=== PATIENT | female | born 2005 | race Caucasian/White ===

== ENCOUNTER 2023-07-02 14:04 | Outpatient (CLI) | payer BC, SELFPAY | END 2023-07-02 14:05 | disposition home or self-care (01) | LOC: LKVREF 14:05 | PROVIDERS: PCP Physician Assistant Medical; Visit Provider Physician Assistant Medical | DX: Z00.00 Encounter for general adult medical examination without abnormal findings (principal); F41.1 Generalized anxiety disorder; Z13.0 Encounter for screening for diseases of the blood and blood-forming organs and certain disorders involving the immune mechanism | CPT/HCPCS: 84443 ==

== ENCOUNTER 2024-07-28 13:46 | Outpatient (CLI) | payer BC, SELFPAY | END 2024-07-28 13:47 | disposition home or self-care (01) | LOC: LKVREF 13:47 | PROVIDERS: PCP Physician Assistant Medical; Visit Provider Physician Assistant Medical | DX: Z11.1 Encounter for screening for respiratory tuberculosis (principal) | CPT/HCPCS: 86480 ==

== ENCOUNTER 2024-08-02 08:01 | Outpatient (CLI) | payer BC, SELFPAY ==
--- NOTE | 2024-08-02 08:15 | CRLHL7_ITS ---
For Patients: As a result of the Cures Act, medical imaging exams and procedure reports are released immediately into your electronic medical record. You may view this report before your referring provider. If you have questions, please contact your health care provider. LEFT BREAST ULTRASOUND CLINICAL HISTORY: LEFT breast lump. COMPARISON: None. TECHNIQUE: Real-time ultrasound imaging of LEFT breast with imaging documentation. FINDINGS: Targeted LEFT breast ultrasound performed at 1 o`clock 3 cm from the nipple. In this location, there is a solid circumscribed heterogeneously hypoechoic mass which measures 5.6 x 2.0 x 5.3 cm. Mild distal acoustic enhancement noted. Minimal internal vascularity. 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 RECOMMENDATIONS: Ultrasound-guided core needle biopsy. Results and recommendations were discussed with the patient at the time of the exam. A lay language report of this examination will be provided to the patient. BI-RADS Category 4: Suspicious Dictated by Khanh Downs MD @ 08/02/2024 8:54:07 AM jj/Dictated by: Khanh Downs MD @ 08/02/2024 8:54:00 AM (Electronically Signed)
== END 2024-08-02 08:02 | disposition home or self-care (01) ==
PROVIDERS: PCP Physician Assistant Medical; Visit Provider Physician Assistant Medical
DX: N63.20 Unspecified lump in the left breast, unspecified quadrant (principal)
CPT/HCPCS: 76642

== ENCOUNTER 2024-08-19 07:05 | Day surgery (SDC) | payer BC, SELFPAY ==
[2024-08-19 07:30] VITALS: BMI 21.0
[2024-08-19 07:33] LABS: Ur HCG Qualitative* Negative (Negative)
[2024-08-19 07:37] VITALS: BP 120/67; PULSE 72; RESP 16; TEMP 37.1; O2SAT 99
[2024-08-19] MEDS: SODIUM CHLORIDE 0.9 % (FLUSH) 10 ML SYRINGE IVF (07:50)
[2024-08-19] MEDS: LACTATED RINGERS 500 ML 500 ML 125 ML IV (08:30)
[2024-08-19] MEDS: ACETAMINOPHEN 325 MG TABLET 650 MG PO (08:52)
--- NOTE | 2024-08-19 08:52 | W.PM.H&PU ---
History & Physical Update History & Physical Update H&P Reviewed and patient assessed: No changes noted
--- NOTE | 2024-08-19 08:52 | PM.GSPRC ---
Operative Note Date of procedure: 08/19/24 Pre-op diagnosis: Left breast mass Post-op diagnosis: same Type of Procedure: Excision left breast mass Indications: The patient is a 19-year-old female was found have a left breast mass on clinical exam. Ultrasound was obtained which showed a 5.7 cm nodule representing fibroadenoma versus phyllodes tumor. Given its size, excision was recommended. The patient agreed to proceed. Procedure Description: After discussing the risks and benefits of the procedure, the patient signed informed consent.? The operative site was marked and the patient was brought to the operating room and placed on the operating table in supine position.? Care was taken to pad the patient's pressure points.?? The patient was then given sedation by anesthesia.?? The operative site was then prepped and draped in the usual sterile fashion.? A time-out was then performed. Local anesthetic was injected into the skin subcutaneous tissue in the upper outer quadrant of the left breast overlying the mass. A curvilinear incision was created at the nipple areolar complex border and dissection was taken down into the subcutaneous tissue. The mass was very mobile within the breast tissue and this was mobilized laterally to minimize injury to the central breast tissue as I dissected down to it using cautery. Once the mass was encountered, I carefully dissected this from the surrounding tissue avoiding entering the capsule, however leaving normal breast tissue behind. This was then marked with a single stitch superior and a double stitch laterally and sent to pathology in formalin. The wound was examined and hemostasis appeared excellent. Interrupted 2 0 Vicryl sutures were used to reapproximate the breast tissue within the cavity. 3-0 Vicryl dermal and 4-0 Monocryl running subcuticular suture were then used to close the skin. Sterile dressings were applied. A compression wrap was then applied. ? The patient was then woken and transported to the recovery area in stable condition. ? The patient tolerated the procedure well. Findings: 5.7 cm well-circumscribed lobulated left breast mass Anesthesia: MAC Surgeon: Smita Da Silva MD Estimated blood loss (mL): 5 Additional Specimen Information: left breast mass, single stitch superior, double lateral Condition: stable Disposition: same day
[2024-08-19] MEDS: LIDOCAINE 1% MDV 20 ML INJECTION (09:05)
[2024-08-19] MEDS: BUPIVACAINE 0.25% 30 ML INJECTION (09:05)
[2024-08-19] MEDS: LACTATED RINGERS 1000 ML 1,000 ML 100 ML IV (09:08)
[2024-08-19 09:44] VITALS: BP 96/52; PULSE 60; RESP 16; TEMP 36.4; O2SAT 98
[2024-08-19 09:45] VITALS: BP 98/60; PULSE 64; RESP 16; O2SAT 98
[2024-08-19 10:00] VITALS: BP 83/47; PULSE 67; RESP 16; O2SAT 98
[2024-08-19 10:15] VITALS: BP 90/55; PULSE 71; RESP 16; O2SAT 98
[2024-08-19 10:30] VITALS: BP 103/77; PULSE 75; RESP 16; O2SAT 98
--- NOTE | 2024-08-19 11:17 | P.ANES_ITS ---
Anesthesia Charges Start Date/Time Anesthesia Start Date: 08/19/24 Anesthesia Start Time: 08:45 Stop Date/Time Anesthesia Stop Date: 08/19/24 Anesthesia Stop Time: 09:44 Coding CPT Codes CPT Codes: ANESTH SKIN EXT/PER/ATRUNK - 38045 ([id number]) P1 - NORMAL HEALTHY PATIENT, QK - BLUEPRINT CUTTER 2-4 CNCRNT ANES PROC, QX - DRESSMAKER GARMENT FITTER SVKiara W/ MED DIRECTION
--- NOTE | 2024-08-19 11:17 | W.ANESCHARGE ---
Anesthesia Charges Start Date/Time Anesthesia Start Date: 08/19/24 Anesthesia Start Time: 08:45 Stop Date/Time Anesthesia Stop Date: 08/19/24 Anesthesia Stop Time: 09:44 Coding CPT Codes CPT Codes: ANESTH SKIN EXT/PER/ATRUNK - 25867 ([id number]) P1 - NORMAL HEALTHY PATIENT, QK - DIAL POLISHER 2-4 CNCRNT ANES PROC, QX - CLERK ENTRY LEVEL SVKiara W/ MED DIRECTION
== END 2024-08-19 11:05 | disposition home or self-care (01) ==
PROVIDERS: PCP Physician Assistant Medical; Visit Provider Surgery
PROC: (CPT 19120; principal; 2024-08-19 08:30)
DX: D24.2 Benign neoplasm of left breast (principal); N63.21 Unspecified lump in the left breast, upper outer quadrant
CPT/HCPCS: 19120; 00400; 81025; J2003; A9270; J0665; J0690; J1100; J2250; J2405; J2704; J3010; J7120

== ENCOUNTER 2025-02-08 21:07 | Emergency (ER) | payer BC, SELFPAY ==
[2025-02-08 21:11] VITALS: BP 118/72; PULSE 82; RESP 16; TEMP 37.5; O2SAT 97; BMI 20.9
--- NOTE | 2025-02-08 21:54 | ED.GENADULT ---
HPI - General Adult General Date Seen: 02/08/25 Chief complaint: Difficulty Swallowing Stated complaint: Took doxycycline since then cant swallow andchestp Time Seen by Provider: 02/08/25 21:24 History of Present Illness HPI narrative: 20-year-old female who is generally healthy, presenting to the ER today with her family with concern for odynophagia and chest pain. She has been on doxycycline for the past 2 weeks (for her skin). About 6 days ago she took a doxycycline 1 lay down. Ever since then she was and having some burning she stabbing discomfort with swallowing. This discomfort is mostly in the center of the chest. It has been getting worse. She stop the doxycycline a few days ago and has been using Pepcid, Tums, and started omeprazole. It has been getting worse for the past couple of days and now it hurts fairly continuously. She is not have any trouble breathing. No fever. No cough. No pain in her throat. No abdominal pain. She has hardly been able to drink because it hurts too much to swallow. She is starting to feel little bit weak like she is dehydrated. Related Data Previous Rx's ?Medication ?Instructions ?Recorded lorazepam 0.5 mg tablet 0.5 mg PO TID PRN anxiety #30 tabs 08/29/23 escitalopram oxalate 5 mg tablet 5 mg PO QDAY #90 tabs 05/03/24 escitalopram oxalate 10 mg tablet 10 mg PO QDAY #90 tabs 07/28/24 (Lexapro) hydroxyzine pamoate 25 mg capsule 25 - 50 mg (1 - 2 x 25 mg) PO QHS 07/28/24 PRN sleep #60 caps hydrocodone 5 mg-acetaminophen 325 1 tab PO Q6H PRN pain #10 tabs 02/09/25 mg tablet sucralfate 100 mg/mL oral 1 g (10 mL) PO Q6H PRN #200 mL 02/09/25 suspension Allergies Allergy/AdvReac Type Severity Reaction Status Date / Time erythromycin base Allergy Unknown Verified 02/08/25 21:25 [facility] Medical History (Updated 02/09/25 @ 00:02 by Srini Lobo MD) Anxiety ?F41.9 - Anxiety disorder, unspecified (ICD-10) Panic attack ?F41.0 - Panic disorder [episodic paroxysmal anxiety] (ICD-10) 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/11) ?D22.9 - Melanocytic nevi, unspecified (ICD-10) Cystitis (07/01/11) ?N30.90 - Cystitis, unspecified without hematuria (ICD-10) Surgical History Status post wisdom tooth extraction ?Z98.818 - Other dental procedure status (ICD-10) Family History (Updated 08/10/24 @ 09:52 by Smita Da Silva MD) Maternal Grandmother Breast cancer Mother Anxiety Osteoporosis Father High blood pressure Paternal Grandfather Diabetes High blood pressure Social History (Updated 08/10/24 @ 10:15 by Smita Da Silva MD) Narrative: 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 Never smoker Alcohol: occasional ( few drinks per week) No recreational drugs No Signiant relationship Not sexually active What is your current living situation?: I presently have a place to live Problems where you live: no known problems In the past 12 months, utilities in danger of being shut off: no In past 12 months, lack of transportation kept you from medical appts, meetings, work, or getting things needed for daily living: no In the past 12 mos, have been you worried that your food would run out before you had money to buy more?: never true In the past 12 mos, the food you bought just didn't last and you didn't have money to buy more?: never true Smoking Status: Never smoker How often do you have a drink containing alcohol: monthly or less How many standard drinks containing alcohol do you have on a typical day: 1 or 2 How often do you have six or more drinks on one occasion: Never AUDIT-C Alcohol total score: 1 Non-prescribed substance use: denies use Caffeine: Yes How often does anyone, including family, friends and others, physically hurt you: never How often does anyone, including family, friends and others, insult or talk down to you: never How often does anyone, including family, friends and others, threaten you with harm: never How often does anyone, including family, friends and others, scream or curse at you: never Are you using contraception or practicing any form of control: No Exam Narrative: Exam Narrative: Constitutional: Appears well-developed and well-nourished. Alert. Conversant. Non toxic. HENT: Head: Atraumatic. Nose: Nose normal. Mouth/Throat: Oral mucosa is clear . Mucous membranes are dry but not desiccated or cracked. no trismus. Pharynx normal. Tonsils symmetric. No tonsillar enlargement, erythema, or exudate. Eyes: Conjunctivae normal. EOM normal. Pupils equal, round, and reactive to light. No scleral icterus. Neck: Normal range of motion. Neck supple. No tracheal deviation present. Cardiovascular: Normal rate, regular rhythm. No gallop. No friction rub or any sounds of mediastinal air. No murmur heard. Symmetric radial artery pulses Pulmonary/Chest: Effort normal. No stridor. No respiratory distress. No wheezes. No rales. No rhonchi . No tenderness. No chest wall crepitus. Abdominal: Soft. No distension. No mass. No tenderness. No rebound. No guarding. Musculoskeletal: RUE: Normal range of motion. No tenderness. No deformity LUE: Normal range of motion. No tenderness. No deformity RLE: Normal range of motion. No edema. No tenderness. No deformity LLE: Normal range of motion. No edema. No tenderness. No deformity Lymph: No cervical adenopathy. Neurological: Alert and oriented to person, place, and time. Normal strength. CN II-VII intact. No sensory deficit. GCS eye subscore is 4. GCS verbal subscore is 5. GCS motor subscore is 6. Normal coordination Skin: Skin is warm and dry. No rash noted. No pallor. Normal capillary refill. Psychiatric: Normal mood. Normal affect. Const: Vital Signs, click to edit/add: Vital Signs - 24 hr 02/08/25 21:11 02/08/25 22:48 Temperature 99.5 F Pulse Rate [Pulse Oximeter] 82 74 Respiratory Rate 16 16 Blood Pressure [Ri ght Upper Arm] 118/72 Pulse Oximetry 97 94 Oxygen Delivery Me thod Room Air Room Air Course Vital Signs Vital signs: Initial Vital Signs Temperature 99.5 F 02/08/25 21:11 Temperature Source Temporal Artery Scan 02/08/25 21:11 Pulse Rate 82 02/08/25 21:11 Respiratory Rate 16 02/08/25 21:11 Blood Pressure 118/72 02/08/25 21:11 Blood Pressure Mean 87 02/08/25 21:11 Pulse Oximetry 97 02/08/25 21:11 Oxygen Delivery Method Room Air 02/08/25 21:11 Vital Signs Temperature 99.5 F 02/08/25 21:11 Pulse Rate 82 02/08/25 21:11 Respiratory Rate 16 02/08/25 21:11 Blood Pressure 118/72 02/08/25 21:11 Pulse Oximetry 97 02/08/25 21:11 Oxygen Delivery Method Room Air 02/08/25 21:11 Temperature 99.5 F 02/08/25 21:11 Pulse Rate 74 02/08/25 22:48 Respiratory Rate 16 02/08/25 22:48 Blood Pressure 118/72 02/08/25 21:11 Pulse Oximetry 94 02/08/25 22:48 Oxygen Delivery Method Room Air 02/08/25 22:48 Medications Administered Medications: Discontinued Medications Generic Name Dose Route Start Last Admin Trade Name Freq PRN Reason Stop Dose Admin Hydromorphone HCl 0.5 mg 02/08/25 22:33 02/08/25 22:42 Hydromorphone 0.5 Mg/0.5 Ml Inj IVP 0.5 mg Q1H PRN Administration Pain Sodium Chloride 1,000 mls @ 1,000 mls/hr 02/08/25 22:45 02/08/25 23:24 0.9 % Sodium Chloride 1000 Ml IV 02/08/25 23:44 Infused .Q1H ANABELLE Infusion Lidocaine/Aluminum/Magnesium/Simeth 30 ml 02/08/25 21:36 02/08/25 21:57 Gi Cocktail (Visc Lido/Antacid) 30 Ml PO 02/08/25 21:37 30 ml ONCE ONE Administration Ondansetron HCl 4 mg 02/08/25 22:33 02/08/25 22:42 Ondansetron 2 Mg/Ml Inj IVP 02/08/25 22:34 4 mg ONCE ONE Administration Medical Decision Making MDM Narrative Medical decision making narrative: Pleasant 20-year-old female presenting to the ER today with her family with concern for with Gabbi aphasia and chest discomfort. Clinically the patient, her family, and I agree also suspect that she probably has esophagitis triggered by her doxycycline. At this point clinical exam does not show any sign of Boerhaave syndrome, esophageal rupture. She is not having any symptoms or signs of upper GI bleeding. With a clear relationship to swallowing, the pain seems esophageal in origin and not cardiac or PE, or other life-threatening cardiopulmonary problem. In terms of treating herself a jet is she is already stop the doxycycline and has started for a couple of days on Pepcid and omeprazole but continues to feel worse. She is having so much pain she is having trouble swallowing so came here to the ER. We did administer a GI cocktail with some mild relief. She is able to drink water but still is having a good lead amount of pain and does not feel like she will be able to stay hydrated. We established an IV and gave her L of saline. We also administered Dilaudid for pain and after this she was more comfortable. She was doing better with swallowing. At this point the patient feels like she can manage at home, at least temporarily. I encouraged her to continue on the omeprazole and Pepcid. Also will add Carafate and GI cocktail prescriptions that she can use for temporary symptomatic relief at home. Also prescription for [place] provided. Opiate precautions reviewed Discussed that week Specter symptoms to be better over the next 5-7 days if she is not improving, return to the ER follow-up with PCP to consider an outpatient endoscopy. For now there is no indication for immediate emergent endoscopy or hospitalization and patient would prefer to avoid that procedure, unless it becomes more necessary. Precautions for return to the ER reviewed in the patient's invited to return if she has worsening pain, trouble with hydration, or other concerns. Discharge Plan Discharge Clinical Impression: Esophagitis Patient Disposition: Home, Self-Care Condition: Stable Instructions: Esophagitis (ED) Additional Instructions: As we discussed, we suspect that your symptoms are probably caused by acid lozada on the lining of your esophagus (esophagitis) which may have been caused by your antibiotic doxycycline. Please can continue to avoid taking doxycycline. Please continue on omeprazole and Pepcid and continue them every day for the next few weeks. Use the prescription for carafate every 6 hours as needed or the prescription for GI cocktail every 8 hours as needed. If you not substantially improved within 5-7 days, please recheck with your regular doctor. Remember, please come back to the ER right away if you have any worsening symptoms.. Prescriptions: New sucralfate 100 mg/mL suspension 1 g PO Q6H PRNQty: 200 0RF hydrocodone-acetaminophen 5-325 mg tablet 1 tab PO Q6H PRN (Reason: pain) Qty: 10 0RF No Action lorazepam 0.5 mg tablet 0.5 mg PO TID PRN (Reason: anxiety) Qty: 30 0RF hydroxyzine pamoate 25 mg capsule 25 - 50 mg PO QHS PRN (Reason: sleep ) Qty: 60 1RF Rx Instructions: 1-2 capsules nightly as needed for sleep difficulty escitalopram oxalate [Lexapro] 10 mg tablet 10 mg PO QDAY Qty: 90 3RF Rx Instructions: 1 tablet daily escitalopram oxalate 5 mg tablet 5 mg PO QDAY Qty: 90 0RF Rx Instructions: take one tablet in addition to already prescribed 10mg tablet daily Follow Up/Referrals: Razia Kent PA-C [Primary Care Provider, Family Practice] Stand Alone Forms: [employer] Info Instructions
[2025-02-08] MEDS: GI COCKTAIL (VISC LIDO/ANTACID) 30 ML PO (21:57)
[2025-02-08] MEDS: ONDANSETRON 2 MG/ML inj 4 MG IVP (22:42)
[2025-02-08 22:48] VITALS: PULSE 74; RESP 16; O2SAT 94
== END 2025-02-09 00:14 | disposition home or self-care (01) ==
PROVIDERS: Emergency Provider Emergency Medicine; PCP Physician Assistant Medical
DX: K20.90 Esophagitis, unspecified without bleeding (principal); R47.01 Aphasia; R07.9 Chest pain, unspecified
CPT/HCPCS: 96361; 96374; 96375; 99283; 99284; A9270; J1171; J2405; J7030